=== PATIENT | female | born 1995 | race Two or more races ===

== ENCOUNTER 2021-08-10 08:08 | Emergency (ER) | payer MEDICAID ==
[~2021-08-10] VITALS: Ht 149.9 cm; Wt 90.7 kg
[2021-08-10 08:36] LABS: Urine Bacteria NONE SEEN /hpf (None Seen); Urine Blood Negative /uL (Negative); Urine Mucus FEW (None Seen); Urine Specific Gravity 1.026 (1.001-1.035); Urine WBC 2 /hpf (0 - 5)
[2021-08-10 09:11] LABS: Basophils # (auto) 0.1 10 ^3/uL (0-0.2); Basophils % (auto) 0.7 % (0.0-2.0); Eosinophils # (auto) 0.4 10 ^3/uL (0-0.8); Hematocrit 41.3 % (36.0-46.0); Hemoglobin 13.6 g/dL (12.2-16.2); Lymphocytes # (auto) 2.1 10 ^3/uL (0.4-5.4); Lymphocytes % (auto) 18.8 % (10.0-50.0); Mean Corpuscular Hgb Conc. 32.9 g/dL (32.0-36.0); Mean Corpuscular Volume 91.3 fL (80.0-100.0); Monocytes # (auto) 0.7 10 ^3/uL (0-1.3); Monocytes % (auto) 6.1 % (0.0-12.0); Neutrophils # (auto) 7.9 10 ^3/uL (1.6-8.6); Neutrophils % (auto) 70.4 % (37.0-80.0); Red Blood Cells 4.53 10^6/uL (4.0-5.20); White Blood Cell 11.2 10^3/uL (4.4-10.8)
[2021-08-10 09:31] VITALS: BP 138/109
== END 2021-08-10 10:52 | disposition home or self-care (01) ==
LOC: ER 08:08
DX: O26.891 Other specified pregnancy related conditions, first trimester (principal); R10.2 Pelvic and perineal pain; Z3A.10 10 weeks gestation of pregnancy
CPT/HCPCS: 36415; 76801; 81001; 81025; 84702; 85025

== ENCOUNTER 2021-08-14 21:45 | Emergency (ER) | payer MEDICAID ==
[~2021-08-14] VITALS: Ht 149.9 cm; Wt 90.7 kg
[2021-08-14 21:45] VITALS: BP 130/55
== END 2021-08-15 00:13 | disposition left against medical advice (07) ==
LOC: ER 21:49
DX: J45.909 Unspecified asthma, uncomplicated (principal); Z53.21 Procedure and treatment not carried out due to patient leaving prior to being seen by health care provider

== ENCOUNTER 2021-08-16 16:12 | Emergency (ER) | payer MEDICAID ==
[~2021-08-16] VITALS: Ht 149.9 cm; Wt 90.7 kg
[2021-08-16] MEDS ORDERED: ALBUTEROL SULF 2.5 MG/0.5ML(0.5%) NEB SOLN NEB ONE ×2 (17:00→18:00)
[2021-08-16] MEDS ORDERED: IPRATROPIUM BROM 0.5 MG/2.5ML INH SOL NEB ONE ×2 (17:00→18:00)
[2021-08-16] MEDS ORDERED: methylPREDNISolone SOD SUCC 125 MG/2 ML VL IM ONE (17:00)
[2021-08-16] MEDS ORDERED: ALBUTEROL SULF 2.5 MG/0.5ML(0.5%) NEB SOLN ONE (17:57)
[2021-08-16] MEDS ORDERED: IPRATROPIUM BROM 0.5 MG/2.5ML INH SOL ONE (17:57)
[2021-08-16 18:29] VITALS: BP 136/91
== END 2021-08-16 18:36 | disposition home or self-care (01) ==
LOC: ER 16:12
DX: J45.901 Unspecified asthma with (acute) exacerbation (principal)
CPT/HCPCS: 94640; 96372; 99284; J2930; J7644

== ENCOUNTER 2021-09-25 11:57 | Emergency (ER) | payer MEDICAID ==
[~2021-09-25] VITALS: Ht 149.9 cm; Wt 88.5 kg
[2021-09-25] MEDS ORDERED: ALBUTEROL SULF 2.5 MG/0.5ML(0.5%) NEB SOLN NEB ONE (13:00)
[2021-09-25] MEDS ORDERED: IPRATROPIUM BROM 0.5 MG/2.5ML INH SOL NEB ONE (13:00)
[2021-09-25 13:13] VITALS: BP 118/72
== END 2021-09-25 14:18 | disposition home or self-care (01) ==
LOC: ER 11:57
DX: O26.892 Other specified pregnancy related conditions, second trimester (principal); J45.901 Unspecified asthma with (acute) exacerbation; Z3A.16 16 weeks gestation of pregnancy
CPT/HCPCS: 94640; 99283; J7644

== ENCOUNTER 2021-10-05 21:32 | Emergency (ER) | payer MEDICAID ==
[~2021-10-05] VITALS: Ht 149.9 cm; Wt 88.5 kg
[2021-10-05 22:18] LABS: Basophils # (auto) 0 10 ^3/uL (0-0.2); Basophils % (auto) 0.3 % (0.0-2.0); Eosinophils # (auto) 0.2 10 ^3/uL (0-0.8); Eosinophils % (auto) 1.2 % (0.0-7.0); Hematocrit 42.1 % (36.0-46.0); Hemoglobin 13.7 g/dL (12.2-16.2); Lymphocytes # (auto) 1.6 10 ^3/uL (0.4-5.4); Mean Corpuscular Hemoglobin 29.2 pg (28.0-32.0); Mean Corpuscular Hgb Conc. 32.5 g/dL (32.0-36.0); Mean Corpuscular Volume 89.8 fL (80.0-100.0); Monocytes # (auto) 0.9 10 ^3/uL (0-1.3); Neutrophils # (auto) 10.8 10 ^3/uL (1.6-8.6); Neutrophils % (auto) 79.5 % (37.0-80.0); Nucleated Red Blood Cells % 0.1 %; Red Blood Cells 4.69 10^6/uL (4.0-5.20); Red Cell Distribution Width 14.2 % (11.8-14.3); White Blood Cell 13.6 10^3/uL (4.4-10.8)
[2021-10-05 22:22] LABS: Urine WBC None Seen /hpf (0 - 5)
[2021-10-05 22:36] LABS: Calcium 8.4 mg/dL (8.5-10.1); Potassium 3.9 mmol/L (3.5-5.1)
[2021-10-05 22:40] LABS: Albumin 3.1 g/dL (3.4-5.0); BUN/Creatinine Ratio 15.4
[2021-10-05 22:42] LABS: Bilirubin, Total 0.2 mg/dL (0.2-1.0); Total Protein 6.6 g/dL (6.4-8.2)
[2021-10-05 22:48] LABS: Urine Bacteria FEW /hpf (None Seen); Urine Blood Negative /uL (Negative)
[2021-10-06] MEDS ORDERED: CEPH500C PO ×2 (04:10→04:15)
[2021-10-06] MEDS ORDERED: SPACMIS8 (04:15)
[2021-10-06 04:25] VITALS: BP 100/62
== END 2021-10-06 04:28 | disposition home or self-care (01) ==
LOC: ER 21:32
DX: O23.42 Unspecified infection of urinary tract in pregnancy, second trimester (principal); N39.0 Urinary tract infection, site not specified; Z79.899 Other long term (current) drug therapy; Z88.1 Allergy status to other antibiotic agents; Z3A.18 18 weeks gestation of pregnancy
CPT/HCPCS: 36415; 76805; 80053; 81001; 83690; 84702; 85025; 87086

== ENCOUNTER 2021-10-06 20:06 | Emergency (ER) | payer MEDICAID ==
[~2021-10-06] VITALS: Ht 149.9 cm; Wt 89.4 kg
[~2021-10-06 20:06] MED LIST: CEPH500C PO; SPACMIS8
[2021-10-06 21:38] LABS: Albumin 3.3 g/dL (3.4-5.0); Basophils # (auto) 0.1 10 ^3/uL (0-0.2); Basophils % (auto) 0.4 % (0.0-2.0); Calcium 9.3 mg/dL (8.5-10.1); Eosinophils # (auto) 0.3 10 ^3/uL (0-0.8); Hematocrit 43.3 % (36.0-46.0); Hemoglobin 14.3 g/dL (12.2-16.2); Lymphocytes # (auto) 1.5 10 ^3/uL (0.4-5.4); Lymphocytes % (auto) 10.6 % (10.0-50.0); Mean Corpuscular Hemoglobin 29.4 pg (28.0-32.0); Mean Corpuscular Hgb Conc. 33.1 g/dL (32.0-36.0); Mean Corpuscular Volume 88.9 fL (80.0-100.0); Monocytes # (auto) 0.9 10 ^3/uL (0-1.3); Monocytes % (auto) 6.9 % (0.0-12.0); Neutrophils % (auto) 80.1 % (37.0-80.0); Potassium 4.1 mmol/L (3.5-5.1); Red Blood Cells 4.87 10^6/uL (4.0-5.20); Red Cell Distribution Width 14.1 % (11.8-14.3); White Blood Cell 13.8 10^3/uL (4.4-10.8)
[2021-10-06 21:42] LABS: Bilirubin, Total 0.3 mg/dL (0.2-1.0); Total Protein 7.3 g/dL (6.4-8.2)
[2021-10-07 00:08] VITALS: BP 119/79
== END 2021-10-07 00:45 | disposition home or self-care (01) ==
LOC: ER 20:06
DX: R10.13 Epigastric pain (principal); J45.909 Unspecified asthma, uncomplicated; Z20.822 Contact with and (suspected) exposure to COVID-19
CPT/HCPCS: 36415; 80053; 85025; 85379; 87426

== ENCOUNTER 2021-10-26 23:48 | Emergency (ER) | payer MEDICAID ==
[~2021-10-26] VITALS: Ht 149.9 cm; Wt 90.7 kg
[~2021-10-26 23:48] MED LIST changes: -CEPH500C PO
[2021-10-27] MEDS ORDERED: ALBUTEROL SULF 2.5 MG/0.5ML(0.5%) NEB SOLN NEB ONE ×2 (00:45→03:45)
[2021-10-27] MEDS ORDERED: IPRATROPIUM BROM 0.5 MG/2.5ML INH SOL NEB ONE ×2 (00:45→03:45)
[2021-10-27 05:20] VITALS: BP 128/98
[2021-10-27] MEDS ORDERED: predniSONE 20 MG TAB PO ONE (05:30)
== END 2021-10-27 05:25 | disposition home or self-care (01) ==
LOC: ER 23:48
DX: J45.901 Unspecified asthma with (acute) exacerbation (principal)
CPT/HCPCS: 94640; 99284; J7512; J7644

== ENCOUNTER 2021-11-24 13:50 | Observation (INO) | payer MEDICAID ==
[2021-11-24] MEDS ORDERED: ALBU108A5 IN (14:19)
[2021-11-24] MEDS ORDERED: PREN-96 PO (14:20)
== END 2021-11-24 16:00 | disposition home or self-care (01) ==
LOC: LDRP 13:50
PROVIDERS: ADMIT Specialist; ATTEND Obstetrics & Gynecology
DX: O99.512 Diseases of the respiratory system complicating pregnancy, second trimester (principal); J45.909 Unspecified asthma, uncomplicated; O26.892 Other specified pregnancy related conditions, second trimester; E86.0 Dehydration; Z3A.25 25 weeks gestation of pregnancy
CPT/HCPCS: 59025; 81002; 94760; G0378; G0379

== ENCOUNTER 2021-11-24 15:16 | Emergency (ER) | payer MEDICAID ==
[~2021-11-24] VITALS: Ht 149.9 cm; Wt 95.3 kg
[~2021-11-24 15:16] MED LIST changes: +ALBU108A5 IN; +PREN-96 PO
[2021-11-24] MEDS ORDERED: DexAMETHasone 0.5MG/5ML ORAL ELIX PO ONE (16:00)
[2021-11-24] MEDS ORDERED: IPRATROPIUM BROM 0.5 MG/2.5ML INH SOL NEB ONE ×2 (16:00→17:30)
[2021-11-24] MEDS ORDERED: ALBUTEROL SULF 2.5 MG/0.5ML(0.5%) NEB SOLN NEB ONE (17:30)
[2021-11-24 19:35] VITALS: BP 127/82
== END 2021-11-24 19:51 | disposition home or self-care (01) ==
LOC: ER 15:37
DX: O99.512 Diseases of the respiratory system complicating pregnancy, second trimester (principal); J45.901 Unspecified asthma with (acute) exacerbation; Z79.899 Other long term (current) drug therapy; Z88.1 Allergy status to other antibiotic agents; Z3A.24 24 weeks gestation of pregnancy
CPT/HCPCS: 94640; 99283; J7644; J8540

== ENCOUNTER 2021-12-20 06:24 | Emergency (ER) | payer MEDICAID ==
[~2021-12-20] VITALS: Ht 149.9 cm; Wt 99.8 kg
[2021-12-20] MEDS ORDERED: IPRATROPIUM BROM 0.5 MG/2.5ML INH SOL NEB ONE (07:45)
[2021-12-20] MEDS ORDERED: ALBUTEROL SULF 2.5 MG/0.5ML(0.5%) NEB SOLN NEB ONE (07:45)
[2021-12-20] MEDS ORDERED: methylPREDNISolone SOD SUCC 125 MG/2 ML VL IM ONE (07:45)
[2021-12-20 07:48] VITALS: BP 117/73
[2021-12-20] MEDS ORDERED: IPRATROPIUM BROM 0.5 MG/2.5ML INH SOL ONE (07:49)
[2021-12-20] MEDS ORDERED: ALBUTEROL SULF 2.5 MG/0.5ML(0.5%) NEB SOLN ONE (07:49)
[2021-12-20] MEDS ORDERED: methylPREDNISolone SOD SUCC 125 MG/2 ML VL ONE (08:03)
[2021-12-20] MEDS ORDERED: PRED20TA2 PO (08:55)
== END 2021-12-20 09:04 | disposition home or self-care (01) ==
LOC: ER 06:24
DX: O99.513 Diseases of the respiratory system complicating pregnancy, third trimester (principal); J45.901 Unspecified asthma with (acute) exacerbation; Z3A.29 29 weeks gestation of pregnancy
CPT/HCPCS: 94640; 96372; 99283; J2930; J7644

== ENCOUNTER 2022-02-01 13:15 | Observation (INO) | payer MEDICAID ==
[~2022-02-01 13:15] MED LIST changes: +PRED20TA2 PO
== END 2022-02-01 14:38 | disposition home or self-care (01) ==
LOC: LDRP 13:15
PROVIDERS: ADMIT Obstetrics & Gynecology; ATTEND Obstetrics & Gynecology
DX: O62.9 Abnormality of forces of labor, unspecified (principal); O26.893 Other specified pregnancy related conditions, third trimester; R10.2 Pelvic and perineal pain; R11.0 Nausea; Z3A.35 35 weeks gestation of pregnancy; Z79.899 Other long term (current) drug therapy
CPT/HCPCS: 59025; 81002; 82948; 82962; 94760; G0378

== ENCOUNTER 2025-01-12 07:18 | Emergency (ER) | payer MEDICAID ==
[~2025-01-12] VITALS: Ht 149.9 cm; Wt 84.3 kg
[~2025-01-12 07:18] MED LIST changes: +OSEL75CA5 PO; +SPAC1MIS48; -SPACMIS8; +ZOFR4T PO
[2025-01-12 08:18] VITALS: BP 117/73; PULSE 99; RESP 22; TEMP 98.2; O2SAT 100
[2025-01-12] MEDS ORDERED: IBUP-1454 PO (09:18)
--- NOTE | 2025-01-12 09:19 | ED.PDOC ---
Altered Mental Status HPI Comments This is a pleasant 29-year-old female with a MHx that presents for a minor head injury that occurred three days ago while doing yd work Patient reports hitting the frontal lobe on her brick wall while doing yd work. Sustained immediate throbbing pulsing sensation that is currently rated as moderate. Has not taken medications for the symptoms listed above. Pain worsens when leaning forward. Concerned about serious pathology. Denies any nausea vomiting diarrhea. Denies any LOC. Not taken any blood thinners. Denies any changes to his strength speech Chief Complaint: Head Injury Time Seen by MD: 08:08 Primary Care Provider: venegas Reviewed Notes: Nurses Notes, Medications, Allergies Allergies: Coded Allergies: Amoxicillin (Verified Allergy, Unknown, 11/24/21) Uncoded Allergies: ANY CILLINS (Allergy, Unknown, 10/05/21) Home Meds Active Scripts Ondansetron Odt 4MG Tab (ZOFRAN PO) 4 Mg Tb, 4 MG PO Q8HP PRN for 5 Days, #15 TAB ODT TAB-DISSOLVE IN MOUTH, THEN SWALLOW Prov:JESUS PINEDA MD 06/22/24 Prednisone (Prednisone) 20 Mg Tab, 60 MG PO DAILY, #15 MG Prov:PARESH BAKER 10/13/22 Albuterol Sulfate (Albuterol Sulfate Hfa) 108 Mcg/Act Aer, 108 MCG IN QID, #90 AER Prov:PARESH BAKER 10/13/22 Oseltamivir Phosphate (Tamiflu) 75 Mg Cap, 1 CAP PO BID, #10 CAP Prov:PARESH BAKER 10/13/22 Prednisone (Prednisone) 20 Mg Tab, 60 MG PO DAILY for 6 Days, #15 MG Prov:PARESH BAKER 12/20/21 Spacer/Aerosol-Holding Chamber (Aerochamber Plus/Large Ma) Lrg Mask Mis, MASK ONCE, #1 Prov:KEISHA SANTOYO MD 10/06/21 Reported Medications Vit W/ Ferrous Fumara ( One Daily) Daily Tab, 1 TAB PO DAILY, #90 TAB 3 Refills 11/24/21 Albuterol Sulfate (Albuterol Sulfate Hfa) 108 Mcg/Act Aer, 108 MCG IN, AER 11/24/21 Mode of Arrival: Ambulatory Past Medical History PAST MEDICAL HISTORY: Anxiety, Asthma Surgical History: Denies all surgeries [employer] 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 No abrasions lacerations hematomas open wounds or tenderness to palpation), Normal ENT Inspection, Pharynx Normal, TMs Normal Neck: Full Range of Motion, Non-Tender, Normal, Normal Inspection Respiratory: Chest Non-Tender, Lungs Clear, No Accessory Muscle Use, No Respiratory Distress, Normal Breath Sounds Cardiovascular: No Edema, No JVD, No Murmur, No Gallop, Normal Peripheral Pulses, Regular Rate/Rhythm Breast Exam: Deferred Gastrointestinal: No Organomegaly, Non Tender, No Pulsatile Mass, Normal Bowel Sounds, Soft Genitalia: Deferred Pelvic: Deferred Rectal: Deferred Extremities: No calf tenderness, Normal capillary refill, Normal inspection, Normal range of motion, Non-tender, No pedal edema Musculoskeletal : Apperance: Normal Neurologic: Alert, weed eradicator II-XII nml as Tested, No Motor Deficits, Normal Affect, Normal Mood, No Sensory Deficits Cerebellar Function: Normal Reflexes: Normal Skin: Dry, Normal Color, Warm Lymphatic: No Adenopathy Was a procedure done? Was a procedure done?: No Differential Diagnosis (ALOC) Differential Diagnosis: Other X-Ray, Labs, Meds, VS Vital Signs Date Time Temp Pulse Resp B/P (MAP) Pulse Ox O2 Delivery O2 Flow Rate FiO2 01/12/25 08:18 99 22 100 Room Air 01/12/25 08:18 98.2 99 22 117/73 (88) 100 98.2 01/12/25 07:42 98.2 99 22 117/73 (88) 100 X-Ray, Labs, Meds, VS Comment The patient suffered a minor closed head injury. The following differential diagnoses were considered for this patient; subdural hematoma, subarachnoid hemorrhage, epidural hematoma, intraparenchymal bleed, herniation, skull fracture. The patient is neurologically intact by exam and is able to ambulate without difficulty. No indication for CT at this time. No red flags. The patient is not currently utilizing any anticoagulants. The patient is advised to use tylenol as needed for pain. The patient is instructed to follow up their primary care physician as needed or return to ER if vomiting or worsening headache occurs. The patient was counseled in regards to the diagnosis and management of the condition and verbalized understanding of this. Time of 1ST Reevaluation: 09:17 Reevaluation 1ST: Improved Patient Education/Counseling: Diagnosis, Treatment Family Education/Counseling: Diagnosis, Treatment Departure 1 Departure Time of Disposition: 09:16 Impression: Primary Impression: Minor head injury Qualified Codes: S09.90XA - Unspecified injury of head, initial encounter Disposition: HOME / SELF CARE / HOMELESS Condition: Stable e-Prescriptions Ibuprofen (Ibuprofen) 600 Mg Tab 1 TAB PO TID for 7 Days, #21 TAB 0 Refills Prov: JOE SAN NP 01/12/25 Critical Care Note Critical Care Time?: No Stability Stability form required: No Heart Score Heart Score: Heart Score Response (Comments) Value History N/A 0 EKG N/A 0 Age N/A 0 Risk Factors N/A 0 Troponin N/A 0 Total 0 JOE SAN NP Jan 12, 2025 09:19
[2025-01-12] MEDS: KETOROLAC TROMETH 30 MG/ML 1ML VIAL IM ONE (09:20)
== END 2025-01-12 09:25 | disposition home or self-care (01) ==
LOC: ER 07:18
DX: S09.90XA Unspecified injury of head, initial encounter (principal); J45.909 Unspecified asthma, uncomplicated; F41.9 Anxiety disorder, unspecified; F12.90 Cannabis use, unspecified, uncomplicated; Z88.0 Allergy status to penicillin; Z79.52 Long term (current) use of systemic steroids; W22.01XA Walked into wall, initial encounter; Y93.89 Activity, other specified; Y92.096 Garden or yard of other non-institutional residence as the place of occurrence of the external cause; Y99.8 Other external cause status
CPT/HCPCS: 96372; 99283; J1885

== ENCOUNTER 2025-05-03 07:17 | Emergency (ER) | payer MEDICAID ==
[~2025-05-03] VITALS: Ht 149.9 cm; Wt 81.4 kg
[~2025-05-03 07:17] MED LIST changes: +IBUP-1454 PO
[2025-05-03 07:50] LABS: Urine Bacteria None Seen /hpf (None Seen)
--- NOTE | 2025-05-03 07:57 | ED.PDOC ---
History of Present Illness HPI Comments 29-year-old female presents to the ER with a prior medical history of anxiety, asthma; surgical history of and the chief complaint of abdominal pain. Patient reports on having abdominal pain yesterday in the afternoon which was mild for which turned severe at 6:00 p.m. yesterday with N/V/D. Patient states on having sharp right-sided abdominal pain which started over 0400 this morning. Patient notes on her last menstruation period being last month but during April had light spotting. Social history of marijuana use. Denies chills, fever, SOB, CP. No other associated symptoms, modifiers, recent injuries or sick contacts present at this time. Chief Complaint: Abdominal Pain Time Seen by MD: 07:50 Primary Care Provider: ANTONIA Reviewed Notes: Nurses Notes, Medications, Allergies Allergies: Coded Allergies: Amoxicillin (Verified Allergy, Unknown, 11/24/21) Uncoded Allergies: ANY CILLINS (Allergy, Unknown, 10/05/21) Home Meds Active Scripts Ibuprofen (Ibuprofen) 600 Mg Tab, 1 TAB PO TID for 7 Days, #21 TAB 0 Refills Prov:JOE SAN NP 01/12/25 Ondansetron Odt 4MG Tab (ZOFRAN PO) 4 Mg Tb, 4 MG PO Q8HP PRN for 5 Days, #15 TAB ODT TAB-DISSOLVE IN MOUTH, THEN SWALLOW Prov:JESUS PINEDA MD 06/22/24 Prednisone (Prednisone) 20 Mg Tab, 60 MG PO DAILY, #15 MG Prov:PARESH BAKER 10/13/22 Albuterol Sulfate (Albuterol Sulfate Hfa) 108 Mcg/Act Aer, 108 MCG IN QID, #90 AER Prov:PARESH BAKER 10/13/22 Oseltamivir Phosphate (Tamiflu) 75 Mg Cap, 1 CAP PO BID, #10 CAP Prov:PARESH BAKER 10/13/22 Prednisone (Prednisone) 20 Mg Tab, 60 MG PO DAILY for 6 Days, #15 MG Prov:PARESH BAKER 12/20/21 Spacer/Aerosol-Holding Chamber (Aerochamber Plus/Large Ma) Lrg Mask Mis, MASK ONCE, #1 Prov:KEISHA SANTOYO MD 10/06/21 Reported Medications Vit W/ Ferrous Fumara ( One Daily) Daily Tab, 1 TAB PO DAILY, #90 TAB 3 Refills 11/24/21 Albuterol Sulfate (Albuterol Sulfate Hfa) 108 Mcg/Act Aer, 108 MCG IN, AER 11/24/21 Information Source: Patient Mode of Arrival: Ambulatory Severity: Moderate Timing: Hours Duration: Since onset, Hours Prehospital treatment: None Past Medical History PAST MEDICAL HISTORY: Anxiety, Asthma 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 Family History Family History: Reviewed,noncontributory to illness, Unknown Social History Smoker: Non-Smoker Alcohol: Denies ETOH Use Drugs: Marijuana Lives In: Home Constitutional: denies: chills, diaphoresis, fatigue, fever, malaise, sweats, weakness, others EENTM: denies: blurred vision, double vision, ear bleeding, ear discharge, ear drainage, ear pain, ear ringing, eye pain, eye redness, hearing loss, mouth pain, mouth swelling, nasal discharge, nose bleeding, nose congestion, nose pain, photophobia, tearing, throat pain, throat swelling, voice changes, others Respiratory: denies: cough, hemoptysis, orthopnea, SOB at rest, shortness of breath, SOB with excertion, stridor, wheezing, others Cardiovascular: denies: chest pain, dizzy spells, diaphoresis, Dyspnea on exertion, edema, irregular heart beat, left arm pain, lightheadedness, palpitations, PND, syncope, others Gastrointestinal: reports: abdominal pain, diarrhea, nausea, vomiting; denies: abdomen distended, blood streaked bowels, constipated, dysphagia, difficulty swallowing, hematemesis, melena, poor appetite, poor fluid intake, rectal bleeding, rectal pain, others Genitourinary: denies: abnormal vagina bleeding, burning, dyspareunia, dysuria, flank pain, frequency, hematuria, incontinence, pain, , vagina discharge, urgency, others Neurological: denies: dizziness, fainting, headache, left sided numbness, left sided weakness, numbness, paresthesia, pre-existing deficit, right sided numbness, right sided weakness, seizure, speech problems, tingling, tremors, weakness, others Musculoskeletal: denies: back pain, gout, joint pain, joint swelling, muscle pain, muscle stiffness, neck pain, others Integumetry: denies: bruises, change in color, change in hair/nails, dryness, laceration, lesions, lumps, rash, wounds, others Allergic/Immunocompromised: denies: Difficulty Healing, Frequent Infections, Hives, Itching, others Hematologic/Lymphatic: denies: anemia, blood clots, easy bleeding, easy bruising, swollen glands, others Endocrine: denies: excessive hunger, excessive sweating, excessive thirst, excessive urination, flushing, intolerance to cold, intolerance to heat, unexp lained weight gain, unexplained weight loss, others Psychiatric: denies: anxiety, bipolar disorder, depression, hopeless, panic disorder, schizophrenia, sleepless, suicidal, others All Other Systems: Reviewed and Negative Physical Exam General Appearance: Moderate Distress, Normal HEENT: Normal ENT Inspection, Pharynx Normal, TMs Normal Neck: Full Range of Motion, Non-Tender, Normal, Normal Inspection Respiratory: Chest Non-Tender, Lungs Clear, No Accessory Muscle Use, No Respiratory Distress, Normal Breath Sounds Cardiovascular: No Edema, No JVD, No Murmur, No Gallop, Normal Peripheral Pulses, Regular Rate/Rhythm Breast Exam: Deferred Gastrointestinal: No Organomegaly, Non Tender, No Pulsatile Mass, Normal Bowel Sounds, Soft Genitalia: Deferred Pelvic: Deferred Rectal: Deferred Extremities: No calf tenderness, Normal capillary refill, Normal inspection, Normal range of motion, Non-tender, No pedal edema Musculoskeletal : Apperance: Normal Neurologic: Alert, time signal wirer II-XII nml as Tested, No Motor Deficits, Normal Affect, Normal Mood, No Sensory Deficits Cerebellar Function: Normal Reflexes: Normal Skin: Dry, Normal Color, Warm Peripheral Pulses: 3+ Radial (R), 3+ Radial (L) Lymphatic: No Adenopathy Was a procedure done? Was a procedure done?: No Differential Dx Considerations may include: Colitis Electrolyte imbalance X-Ray, Labs, Meds, VS Vital Signs Date Time Temp Pulse Resp B/P (MAP) Pulse Ox O2 Delivery O2 Flow Rate FiO2 05/03/25 08:01 98.7 109 16 127/85 (99) 96 98.7 05/03/25 08:01 109 17 96 Room Air 05/03/25 07:24 98.2 92 16 100/64 (76) 96 98.2 Lab Test 05/03/25 07:54 05/03/25 07:20 Range/Units White Blood Count 8.5 4.4-10.8 10^3/uL Red Blood Count 5.18 4.0-5.20 10^6/uL Hemoglobin 15.7 12.2-16.2 g/dL Hematocrit 46.4 H 36.0-46.0 % Mean Corpuscular Volume 89.5 80.0-100.0 fL Mean Corpuscular Hemoglobin 30.3 28.0-32.0 pg Mean Corpuscular Hemoglobin Concent 33.8 32.0-36.0 g/dL Red Cell Distribution Width 13.8 11.8-14.3 % Platelet Count 287 140-450 10^3/uL Mean Platelet Volume 9.4 6.9-10.8 fL Neutrophils (%) (Auto) 65.8 37.0-80.0 % Lymphocytes (%) (Auto) 18.7 10.0-50.0 % Monocytes (%) (Auto) 7.6 0.0-12.0 % Eosinophils (%) (Auto) 7.3 H 0.0-7.0 % Basophils (%) (Auto) 0.6 0.0-2.0 % Neutrophils # (Auto) 5.6 1.6-8.6 10 ^3/uL Lymphocytes # (Auto) 1.6 0.4-5.4 10 ^3/uL Monocytes # (Auto) 0.6 0-1.3 10 ^3/uL Eosinophils # (Auto) 0.6 0-0.8 10 ^3/uL Basophils # (Auto) 0 0-0.2 10 ^3/uL Nucleated Red Blood Cells 0.0 % Sodium Level 142 136-145 mmol/L Potassium Level 3.7 3.5-5.1 mmol/L Chloride Level 110 H 98-107 mmol/L Carbon Dioxide Level 22 20-31 mmol/L Anion Gap 10 5-15 Blood Urea Nitrogen 9 9-23 mg/dL Creatinine 0.90 0.550-1.02 mg/dL Glomerular Filtration Rate Calc 88 >90 mL/min BUN/Creatinine Ratio 10.0 10.0-20.0 Serum Glucose 107 H 74-106 mg/dL Calcium Level 10.6 H 8.7-10.4 mg/dL Urine Color Yellow Yellow Urine Clarity Ex.turbid Clear Urine pH 5.5 5.0-9.0 Urine Specific Borden 1.033 1.001-1.035 Urine Protein 1+ H Negative Urine Ketones 1+ H Negative Urine Blood Negative Negative /uL Urine Nitrite Negative Negative Urine Bilirubin Negative Negative Urine Urobilinogen Normal Negative mg/dL Urine Leukocyte Esterase Negative Negative /uL Urine RBC None seen 0 - 4 /hpf Urine Microscopic WBC 0-5 /HPF Urine Squamous Epithelial Cells None seen <5 /hpf Urine Amorphous Crystals Few None Seen /hpf Urine Bacteria None seen None Seen /hpf Urine Mucus Moderate None Seen Urine Glucose Normal Normal mg/dL Patient alert. Complaining of abdominal discomfort. Vitals stable. Answering questions. WBC within normal limits. Hemoglobin within normal limits. Abdomen is soft nontender. She is comfortable. Hospital dehydration. Was told to drink plenty of fluids. Was given prescription of Zofran. Explained to the patient. Was told to follow up with her primary care physician. Was told to come back if there is any problem. Time of 1ST Reevaluation: 08:20 Reevaluation 1ST: Unchanged Patient Education/Counseling: Diagnosis, Treatment, Prognosis Family Education/Counseling: No Family Present SEPSIS Sepsis Screen Date sepsis recognized/suspect: May 03, 2025 Time Sepsis recognized/suspect: 719 Recent Procedure: No On Antibiotic Therapy: No Respiratory Rate >20: No Heart Rate >90: Yes Temp<36 C (96.8 F) or >38.3 C: No SBP <90 or MAP <65 mmHG: No New Acute Mental Status Change: No Is the patient on CPAP, BIPAP,: No Vital Signs Date Time Temp Pulse Resp B/P (MAP) Pulse Ox O2 Delivery O2 Flow Rate FiO2 05/03/25 08:01 98.7 109 16 127/85 (99) 96 98.7 05/03/25 08:01 109 17 96 Room Air 05/03/25 07:24 98.2 92 16 100/64 (76) 96 98.2 Laboratory Tests Test 05/03/25 07:54 White Blood Count 8.5 10^3/uL (4.4-10.8) Departure 1 Departure Time of Disposition: 08:11 Impression: Primary Impression: Gastritis Qualified Codes: K29.00 - Acute gastritis without bleeding Additional Impression: Gastroenteritis Disposition: 01 HOME / SELF CARE / HOMELESS Condition: Good e-Prescriptions Ondansetron Odt 4MG Tab (ZOFRAN PO) 4 Mg Tb 4 MG PO DAILY for 5 Days, #5 TAB ODT TAB-DISSOLVE IN MOUTH, THEN SWALLOW Prov: AMADO PEARCE MD 05/03/25 Discharged With: Self Critical Care Note Critical Care Time?: No Stability Stability form required: No Heart Score Heart Score: Heart Score Response (Comments) Value History N/A 0 EKG N/A 0 Age N/A 0 Risk Factors N/A 0 Troponin N/A 0 Total 0 I personally scribed for AMADO PEARCE MD ([email or web address]) on 05/03/25 at 07:57. Electronically submitted by David Duarte ([email or web address]). AMADO PEARCE MD May 03, 2025 07:57
[2025-05-03 08:05] LABS: Basophils # (auto) 0 10 ^3/uL (0-0.2); Basophils % (auto) 0.6 % (0.0-2.0); Eosinophils # (auto) 0.6 10 ^3/uL (0-0.8); Eosinophils % (auto) 7.3 % (0.0-7.0); Hematocrit 46.4 % (36.0-46.0); Hemoglobin 15.7 g/dL (12.2-16.2); Lymphocytes # (auto) 1.6 10 ^3/uL (0.4-5.4); Lymphocytes % (auto) 18.7 % (10.0-50.0); Mean Corpuscular Hemoglobin 30.3 pg (28.0-32.0); Mean Corpuscular Hgb Conc. 33.8 g/dL (32.0-36.0); Mean Corpuscular Volume 89.5 fL (80.0-100.0); Monocytes # (auto) 0.6 10 ^3/uL (0-1.3); Monocytes % (auto) 7.6 % (0.0-12.0); Neutrophils # (auto) 5.6 10 ^3/uL (1.6-8.6); Neutrophils % (auto) 65.8 % (37.0-80.0); Platelet Count (auto) 287 10^3/uL (140-450); Red Blood Cells 5.18 10^6/uL (4.0-5.20); Red Cell Distribution Width 13.8 % (11.8-14.3); White Blood Cell 8.5 10^3/uL (4.4-10.8)
[2025-05-03 08:10] LABS: Urine Amorphous Crystal FEW /hpf (None Seen); Urine Blood Negative /uL (Negative); Urine Clarity Ex.Turbid (Clear); Urine Mucus MODERATE (None Seen); Urine Protein, UAD 1+ (Negative); Urine Specific Gravity 1.033 (1.001-1.035); Urine Squamous Epithelial Cell None Seen /hpf (<5); Urine Urobilinogen Normal (Negative); Urine pH 5.5 (5.0-9.0)
[2025-05-03 08:13] LABS: Urine Color Yellow (Yellow)
[2025-05-03 08:13] LABS: Potassium 3.7 mmol/L (3.5-5.1); Sodium 142 mmol/L (136-145)
[2025-05-03 08:14] LABS: Anion Gap 10 (5-15); Carbon Dioxide 22 mmol/L (20-31)
[2025-05-03 08:18] LABS: Calcium 10.6 mg/dL (8.7-10.4); Chloride 110 mmol/L (98-107)
[2025-05-03 08:19] LABS: Blood Urea Nitrogen 9 mg/dL (9-23)
[2025-05-03 08:20] LABS: Glucose 107 mg/dL (74-106)
[2025-05-03] MEDS ORDERED: ZOFR4T PO (08:51)
[2025-05-03 09:08] VITALS: BP 122/81; PULSE 90; RESP 16; TEMP 98.2; O2SAT 97
== END 2025-05-03 09:08 | disposition home or self-care (01) ==
LOC: ER 07:17
DX: K29.70 Gastritis, unspecified, without bleeding (principal); K52.9 Noninfective gastroenteritis and colitis, unspecified; J45.909 Unspecified asthma, uncomplicated; Z88.0 Allergy status to penicillin
CPT/HCPCS: 36415; 80048; 81001; 85025

== ENCOUNTER 2025-06-07 19:19 | Emergency (ER) | payer MEDICAID ==
[~2025-06-07] VITALS: Ht 149.9 cm; Wt 81.8 kg
[2025-06-07 20:30] LABS: Urine Protein, UAD TRACE (Negative)
--- NOTE | 2025-06-07 21:10 | ED.PDOC ---
History of Present Illness HPI Comments 28-year-old female who presents with chief complaint of abnormal vaginal bleeding lower abdominal and back pain. Patient reports atraumatic and unprovoked onset of bleeding on June 04, 2025. She states ongoing to 2-3 regular size pads every day. Pain is described a pulsating sensation as worse in her lower left quadrant area. Recently, she suspects of being via multiple at home tests she took on June 03, 2025 showing mixed results, to make this her 3rd ([id number], miscarriage; LMP May 12, 2025). 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 Patient denies having any lightheadedness, nausea, vomiting, urinary symptoms, weakness, or further associated symptoms. REVIEW OF SYSTEMS: No fever, no chills, HEENT: No neck pain, no blurred vision Cardiac: No chest pain. No palpitations. Lungs: No shortness of breath, GI: Abdominal pain, no vomiting : Abnormal vaginal bleeding Musculoskeletal: No joint pain , no back pain Skin: No rash, no wound Neuro: No headache, no dizziness, no syncope PHYSICAL EXAM: General: Awake, alert and oriented. No acute distress. Skin: Skin in warm, dry and intact without rashes or lesions. HEENT: The head is normocephalic and atraumatic. Conjunctivae are clear without exudates or hemorrhage. Sclera is non-icteric. Neck: Normal range of motion. No JVD. Cardiac: Regular rate Respiratory: No signs of respiratory distress. No Stridor. Extremities: Upper and lower extremities are atraumatic in appearance without deformity. Neurological: The patient is awake, alert and oriented to person, place, and time with normal speech. Speech is clear. There is no facial asymmetry. Psychiatric: Appropriate mood and affect. Good judgement and insight. Chief Complaint: Vaginal Bleed Time Seen by MD: 20:50 Primary Care Provider: KNIGHT Reviewed Notes: Nurses Notes, Medications, Allergies Allergies: Coded Allergies: Amoxicillin (Verified Allergy, Unknown, 11/24/21) Uncoded Allergies: ANY CILLINS (Allergy, Unknown, 10/05/21) Home Meds Active Scripts Ondansetron Odt 4MG Tab (ZOFRAN PO) 4 Mg Tb, 4 MG PO DAILY for 5 Days, #5 TAB ODT TAB-DISSOLVE IN MOUTH, THEN SWALLOW Prov:AMADO PEARCE MD 05/03/25 Ibuprofen (Ibuprofen) 600 Mg Tab, 1 TAB PO TID for 7 Days, #21 TAB 0 Refills Prov:JOE SAN NP 01/12/25 Ondansetron Odt 4MG Tab (ZOFRAN PO) 4 Mg Tb, 4 MG PO Q8HP PRN for 5 Days, #15 TAB ODT TAB-DISSOLVE IN MOUTH, THEN SWALLOW Prov:JESUS PINEDA MD 06/22/24 Prednisone (Prednisone) 20 Mg Tab, 60 MG PO DAILY, #15 MG Prov:PARESH BAKER 10/13/22 Albuterol Sulfate (Albuterol Sulfate Hfa) 108 Mcg/Act Aer, 108 MCG IN QID, #90 AER Prov:PARESH BAKER 10/13/22 Oseltamivir Phosphate (Tamiflu) 75 Mg Cap, 1 CAP PO BID, #10 CAP Prov:PARESH BAKER 10/13/22 Prednisone (Prednisone) 20 Mg Tab, 60 MG PO DAILY for 6 Days, #15 MG Prov:PARESH BAKER 12/20/21 Spacer/Aerosol-Holding Chamber (Aerochamber Plus/Large Ma) Lrg Mask Mis, MASK ONCE, #1 Prov:KEISHA SANTOYO MD 10/06/21 Reported Medications Vit W/ Ferrous Fumara ( One Daily) Daily Tab, 1 TAB PO DAILY, #90 TAB 3 Refills 11/24/21 Albuterol Sulfate (Albuterol Sulfate Hfa) 108 Mcg/Act Aer, 108 MCG IN, AER 11/24/21 Information Source: Patient Mode of Arrival: Ambulatory Severity: Moderate Timing: Days Duration: Since onset Prehospital treatment: None Past Medical History PAST MEDICAL HISTORY: Anxiety, Asthma Surgical History: [employer] History: Other (Miscarriages induced due to having O negative blood) 3 Para 1 AB 1 LMP May 12, 2025 Family History Family History: Reviewed,noncontributory to illness, Unknown Social History Smoker: Non-Smoker Alcohol: Denies ETOH Use Drugs: Marijuana Lives In: Home Was a procedure done? Was a procedure done?: No Differential Dx Considerations may include: Differential diagnoses considered include but are not limited to abnormal uterine bleeding, normal administration, urinary tract infection, miscarriage, ruptured ectopic , ovarian torsion/cyst, tubo-ovarian abscess, PID, endometriosis, other X-Ray, Labs, Meds, VS Vital Signs Date Time Temp Pulse Resp B/P (MAP) Pulse Ox O2 Delivery O2 Flow Rate FiO2 06/08/25 00:03 Room Air* 0 21 06/08/25 00:02 98.0 77 14 106/77 (87) 99 98.0 06/07/25 19:25 98.3 93 18 104/68 97 98.3 Lab Test 06/07/25 20:11 Range/Units Urine Color Yellow Yellow Urine Clarity Clear Clear Urine pH 5.5 5.0-9.0 Urine Specific [place] 1.032 1.001-1.035 Urine Protein Trace H Negative Urine Ketones Negative Negative Urine Blood 2+ H Negative /uL Urine Nitrite Negative Negative Urine Bilirubin Negative Negative Urine Urobilinogen Normal Negative mg/dL Urine Leukocyte Esterase Negative Negative /uL Urine RBC 2 0 - 4 /hpf Urine Microscopic WBC 1 0-5 /HPF Urine Squamous Epithelial Cells Few <5 /hpf Urine Bacteria Few H None Seen /hpf Urine Mucus Few None Seen Urine Glucose Normal Normal mg/dL Urine Test Negative Negative Time of 1ST Reevaluation: 21:20 Reevaluation 1ST: Unchanged Patient Education/Counseling: Need For Follow Up Family Education/Counseling: No Family Present SEPSIS Sepsis Screen Date sepsis recognized/suspect: Jun 07, 2025 Time Sepsis recognized/suspect: 1928 Recent Procedure: No On Antibiotic Therapy: No Respiratory Rate >20: No Heart Rate >90: Yes Temp<36 C (96.8 F) or >38.3 C: No SBP <90 or MAP <65 mmHG: No New Acute Mental Status Change: No Is the patient on CPAP, BIPAP,: No Vital Signs Date Time Temp Pulse Resp B/P (MAP) Pulse Ox O2 Delivery O2 Flow Rate FiO2 06/08/25 00:03 Room Air* 0 21 06/08/25 00:02 98.0 77 14 106/77 (87) 99 98.0 06/07/25 19:25 98.3 93 18 104/68 97 98.3 Departure 1 Departure Time of Disposition: 21:58 Impression: Primary Impression: Vaginal bleeding Disposition: 01 HOME / SELF CARE / HOMELESS Condition: Stable Additional Instructions: ED DISCHARGE INSTRUCTIONS Instructions: Please read all instructions provided in this packet carefully. Although you have been discharged from the Emergency Department, this does not mean that you have a "clean bill of health".No definitive diagnosis for your symptoms has been made today. It is possible that you are in the process of developing a serious illness. This is why you must return to the ED without fail if any new or worsening symptoms (especially if your symptoms include chest pain, trouble breathing, abdominal pain, fever, headache, confusion, trouble seeing, or trouble walking) It is also very important that you see a primary care provider (PCP) within the next 3-5 days to follow up. If you are unable to get an appointment, return to the ED for re-evaluation. Abdominal Pain: Care Instructions Overview Abdominal pain has many possible causes. Some aren't serious and get better on their own in a few days. Others need more testing and treatment. If your pain continues or gets worse, you need to be rechecked and may need more tests to find out what is wrong. You may need surgery to correct the problem. Don't ignore new symptoms, such as fever, nausea and vomiting, urination problems, pain that gets worse, and dizziness. These may be signs of a more serious problem. If you are not getting better, you may need more tests or treatment. The doctor has checked you carefully, but problems can develop later. If you notice any problems or new symptoms, get medical treatment right away. Follow-up care is a anderson part of your treatment and safety. Be sure to make and go to all appointments, and call your doctor if you are having problems. It's also a good idea to know your test results and keep a list of the medicines you take. How can you care for yourself at home? Rest until you feel better. To prevent dehydration, drink plenty of fluids. Choose water and other clear liquids until you feel better. If you have kidney, heart, or liver disease and have to limit fluids, talk with your doctor before you increase the amount of fluids you drink. When you feel like eating, start with small amounts. Do not have alcohol, caffeine, or spicy, hot, or high-fat foods for a day or two. Avoid anti-inflammatory medicines such as aspirin, ibuprofen (Advil, Motrin), and naproxen (Aleve). These can cause stomach upset. Talk to your doctor if you take daily aspirin for another health problem. When should you call for help? Call 911 anytime you think you may need emergency care. For example, call if: You passed out (lost consciousness). You pass maroon or very bloody stools. You vomit blood or what looks like coffee grounds. You have severe belly pain. Call your doctor now or seek immediate medical care if: Your pain gets worse, especially if it becomes focused in one area of your belly. You have a new or higher fever. Your stools are black and look like tar, or they have streaks of blood. You have unexpected vaginal bleeding. You have symptoms of a urinary tract infection. These may include: Pain when you urinate. Urinating more often than usual. Blood in your urine. You are dizzy or lightheaded, or you feel like you may faint. Watch closely for changes in your health, and be sure to contact your doctor if: You are not getting better as expected. Credits for Abdominal Pain: Care Instructions Current as of: August 22, 2023 Author: [employer] Staff Clinical Review Board All [employer] education is reviewed by a team that includes physicians, nurses, advanced practitioners, registered dieticians, and other healthcare professionals. Comments MDM: 29-year-old female with vaginal bleeding. Patient is well-appearing, nontoxic. Urine negative. Vital signs stable. Patient is felt stable for discharge home. Patient advised to follow up with primary care provider promptly and return to the emergency department with any new, worsening or concerning symptoms. Extensive evaluation was performed in attempt to identify or rule out: (See differential diagnosis section) The following tests were ordered, and results were reviewed by me and discussed with patient: (See diagnostic results section) I reviewed the following notes from the pt's past medical encounters: May 03, 2025 encounter for gastritis Discussion of management or test interpretation with external physician/other qualified health care management assistant: N/A Decision regarding hospitalization or escalation of hospital level of care: Risks and benefits of admission for further treatment of patient's condition was considered however due to patient's stable condition patient will be discharged to follow up closely or return to care for worsening of condition or inability to follow up. Critical Care Note Critical Care Time?: No Stability Stability form required: No Heart Score Heart Score: Heart Score Response (Comments) Value History N/A 0 EKG N/A 0 Age N/A 0 Risk Factors N/A 0 Troponin N/A 0 Total 0 I personally scribed for ALTAGRACIA MIGUEL MD ([email or web address]) on 06/07/25 at 21:10. Electronically submitted by Anup Mchugh ([email or web address]). I personally scribed for ALTAGRACIA MIGUEL MD ([email or web address]) on 06/08/25 at 00:12. Electronically submitted by Anup Mchugh ([email or web address]). ALTAGRACIA MIGUEL MD Jun 07, 2025 21:10
[2025-06-08 00:02] VITALS: BP 106/77; PULSE 77; RESP 14; TEMP 98; O2SAT 99
== END 2025-06-08 00:07 | disposition home or self-care (01) ==
LOC: ER 19:19
DX: N93.9 Abnormal uterine and vaginal bleeding, unspecified (principal); F12.90 Cannabis use, unspecified, uncomplicated; J45.909 Unspecified asthma, uncomplicated; F41.9 Anxiety disorder, unspecified; Z79.899 Other long term (current) drug therapy; Z98.890 Other specified postprocedural states; Z88.0 Allergy status to penicillin; Z79.52 Long term (current) use of systemic steroids; Z79.1 Long term (current) use of non-steroidal anti-inflammatories (NSAID)
CPT/HCPCS: 81001; 81025

== ENCOUNTER 2025-07-05 14:43 | Emergency (ER) | payer MEDICAID ==
[~2025-07-05] VITALS: Ht 149.9 cm; Wt 80.0 kg
[2025-07-05] MEDS ORDERED: METH4PAK PO (15:31)
[2025-07-05] MEDS ORDERED: ALBU108A5 IN (15:31)
--- NOTE | 2025-07-05 15:32 | ED.PDOC ---
SOB-HPI HPI Comments 29 y/o F, with PMHx of anxiety and asthma presents to the ED for CC of asthma. Patient states, she has been experiencing symptoms of shortness of breath sudden onset, this morning (07/05/25). Patient reports, that she is currently out of her Albuterol Inhaler and has been unable to get a refill d/t not having a scheduled appointment with her PCP. Patient denies fever, chills, nasal congestion, or sore-throat. No other symptoms or modifying factors are present at this time. Chief Complaint: Asthma Time Seen by MD: 15:20 Primary Care Provider: ANTONIA Reviewed notes: Nurses Notes, Medications, Allergies Information Source: Patient Mode of Arrival: Ambulatory Severity: Moderate Timing: Hours Duration: Since onset PE Risk Factors: None History of: Asthma Prehospital treatment: None Modifying Factors: Nothing Associated Signs and Symptoms: None Past Medical History PAST MEDICAL HISTORY: Anxiety, Asthma Surgical History: [employer] PL[employer]TER History: Other Family History Family History: Reviewed,noncontributory to illness, Unknown Social History Smoker: Non-Smoker Alcohol: Denies ETOH Use Drugs: Marijuana Lives In: Home Constitutional: denies: chills, diaphoresis, fatigue, fever, malaise, sweats, weakness, others EENTM: denies: blurred vision, double vision, ear bleeding, ear discharge, ear drainage, ear pain, ear ringing, eye pain, eye redness, hearing loss, mouth pain, mouth swelling, nasal discharge, nose bleeding, nose congestion, nose pain, photophobia, tearing, throat pain, throat swelling, voice changes, others Respiratory: reports: shortness of breath; denies: cough, hemoptysis, orthopnea, SOB at rest, SOB with excertion, stridor, wheezing, others Cardiovascular: denies: chest pain, dizzy spells, diaphoresis, Dyspnea on exertion, edema, irregular heart beat, left arm pain, lightheadedness, palpitations, PND, syncope, others Gastrointestinal: denies: abdomen distended, abdominal pain, blood streaked bowels, constipated, diarrhea, dysphagia, difficulty swallowing, hematemesis, melena, nausea, poor appetite, poor fluid intake, rectal bleeding, rectal pain, vomiting, others Genitourinary: denies: abnormal vagina bleeding, burning, dyspareunia, dysuria, flank pain, frequency, hematuria, incontinence, pain, , vagina discharge, urgency, others Neurological: denies: dizziness, fainting, headache, left sided numbness, left sided weakness, numbness, paresthesia, pre-existing deficit, right sided numbness, right sided weakness, seizure, speech problems, tingling, tremors, weakness, others Musculoskeletal: denies: back pain, gout, joint pain, joint swelling, muscle pain, muscle stiffness, neck pain, others Integumetry: denies: bruises, change in color, change in hair/nails, dryness, laceration, lesions, lumps, rash, wounds, others Allergic/Immunocompromised: denies: Difficulty Healing, Frequent Infections, Hives, Itching, others Hematologic/Lymphatic: denies: anemia, blood clots, easy bleeding, easy bruising, swollen glands, others Endocrine: denies: excessive hunger, excessive sweating, excessive thirst, excessive urination, flushing, intolerance to cold, intolerance to heat, une xplained weight gain, unexplained weight loss, others Psychiatric: denies: anxiety, bipolar disorder, depression, hopeless, panic disorder, schizophrenia, sleepless, suicidal, others All Other Systems: Reviewed and Negative Physical Exam General Appearance: Mild Distress HEENT: Normal ENT Inspection, Pharynx Normal, TMs Normal Neck: Full Range of Motion, Non-Tender, Normal, Normal Inspection Respiratory: Chest Non-Tender, No Accessory Muscle Use, Respiratory Distress, Wheezing Cardiovascular: No Edema, No JVD, No Murmur, No Gallop, Normal Peripheral Pulses, Regular Rate/Rhythm Breast Exam: Deferred Gastrointestinal: No Organomegaly, Non Tender, No Pulsatile Mass, Normal Bowel Sounds, Soft Genitalia: Deferred Pelvic: Deferred Rectal: Deferred Extremities: No calf tenderness, Normal capillary refill, Normal inspection, Normal range of motion, Non-tender, No pedal edema Musculoskeletal : Apperance: Normal Neurologic: Alert, customer specialist II-XII nml as Tested, No Motor Deficits, Normal Affect, Normal Mood, No Sensory Deficits Cerebellar Function: Normal Reflexes: Normal Skin: Dry, Normal Color, Warm Lymphatic: No Adenopathy Was a procedure done? Was a procedure done?: No Differential Dx Differential Diagnosis: Asthma, Sinusitis, Pharyngitis, URI X-Ray, Labs, Meds, VS Vital Signs Date Time Temp Pulse Resp B/P (MAP) Pulse Ox O2 Delivery O2 Flow Rate FiO2 07/05/25 14:50 24 96 Room Air* 0 21 07/05/25 14:44 98.0 126 24 129/75 96 98.0 The patient was given Solu-Medrol 125 mg IM The patient was given a continuous breathing treatment of albuterol and Atrovent After the patient received the medication, the patient is feeling much better. We did send a prescription to the pharmacy for a Medrol Dosepak as well as an albuterol inhaler The patient is encouraged to follow up with the primary care doctor The patient will return to the emergency department's condition worsens. Time of 1ST Reevaluation: 15:50 Reevaluation 1ST: Unchanged Patient Education/Counseling: Diagnosis, Treatment, Prognosis Family Education/Counseling: No Family Present SEPSIS Sepsis Screen Date sepsis recognized/suspect: Jul 05, 2025 Time Sepsis recognized/suspect: 1443 Recent Procedure: No On Antibiotic Therapy: No Respiratory Rate >20: No Heart Rate >90: Yes Temp<36 C (96.8 F) or >38.3 C: No SBP <90 or MAP <65 mmHG: No New Acute Mental Status Change: No Is the patient on CPAP, BIPAP,: No Physician Orders Med Neb Initial Treatment (07/05/25 15:27) Vital Signs Date Time Temp Pulse Resp B/P (MAP) Pulse Ox O2 Delivery O2 Flow Rate FiO2 07/05/25 14:50 24 96 Room Air* 0 21 07/05/25 14:44 98.0 126 24 129/75 96 98.0 Departure 1 Departure Time of Disposition: 15:50 Impression: Primary Impression: Acute asthma exacerbation Qualified Codes: J45.901 - Unspecified asthma with (acute) exacerbation Disposition: 01 HOME / SELF CARE / HOMELESS Condition: Fair e-Prescriptions Methylprednisolone (Medrol Dosepak) 4 Mg Geovanny 4 MG PO UD, #21 TAB UAD Prov: JESUS PINEDA MD 07/05/25 Albuterol Sulfate (Albuterol Sulfate Hfa) 108 Mcg/Act Aer 108 MCG IN QID, #90 AER Prov: JESUS PINEDA MD 07/05/25 Discharged With: Self Critical Care Note Critical Care Time?: No Stability Stability form required: No Heart Score Heart Score: Heart Score Response (Comments) Value History N/A 0 EKG N/A 0 Age N/A 0 Risk Factors N/A 0 Troponin N/A 0 Total 0 I personally scribed for JESUS PINEDA MD ([email or web address]) on 07/05/25 at 15:32. Anna ctronically submitted by Meche Black ([email or web address]). JESUS PINEDA MD Jul 05, 2025 15:32
[2025-07-05] MEDS: methylPREDNISolone SOD SUCC 125 MG/2 ML VL IM ONE (15:51)
[2025-07-05 15:54] VITALS: BP 115/64; PULSE 113; TEMP 98.7
[2025-07-05] MEDS: ALBUTEROL SULF 2.5 MG/0.5ML(0.5%) NEB SOLN HHN ONE (16:11)
[2025-07-05 16:12] VITALS: RESP 18; O2SAT 96
[2025-07-05] MEDS: IPRATROPIUM BROM 0.5 MG/2.5ML INH SOL HHN ONE (16:12)
== END 2025-07-05 16:33 | disposition home or self-care (01) ==
LOC: ER 14:43
DX: J45.901 Unspecified asthma with (acute) exacerbation (principal); F41.9 Anxiety disorder, unspecified; F12.90 Cannabis use, unspecified, uncomplicated; Z98.890 Other specified postprocedural states
CPT/HCPCS: 94640; 96372; 99283; J2919

== ENCOUNTER 2025-09-22 08:05 | Emergency (ER) | payer MEDICAID ==
[~2025-09-22] VITALS: Ht 149.9 cm; Wt 78.8 kg
[~2025-09-22 08:05] MED LIST changes: +METH4PAK PO
[2025-09-22 08:25] VITALS: BP 120/81; PULSE 97; RESP 20; TEMP 98.6; O2SAT 99
[2025-09-22] MEDS: ACETAMINOPHEN 325 MG TAB PO ONE (08:34)
--- NOTE | 2025-09-22 08:38 | ED.PDOC ---
Musculoskeletal HPI Comments A 29 YEAR OLD FEMALE PRESENTS TO THE ED WITH COMPLAINT OF LEFT KNEE PAIN. PATIENT STATES YESTERDAY SHE WAS RUNNING TOWARDS DAUGHTER WHILE PLAYING WITH HER AND STATES SHE HAD SLIP AND FALL ONTO LEFT KNEE. PATIENT DENIES ANY ASSOCIATED HEAD INJURY OR LOSS OF CONSCIOUSNESS BUT STATES SINCE SHE HAS BEEN HAVING DIFFICULTY AMBULATING. PATIENT STATES SINCE SHE HAS BEEN HAVING INCREASING LEFT KNEE PAIN AND CAME TODAY FOR EVALUATION. PATIENT DENIES FEVER, CHILLS, SHORTNESS OF BREATH, CHEST PAIN, ABDOMINAL PAIN, NAUSEA, VOMITING, HEADACHE, OR OTHER COMPLAINTS. NO OTHER SYMPTOMS OR MODIFYING FACTORS AT THIS TIME. PATIENT IS ALERT, ORIENTED X 4, AND HAS STEADY GAIT. Chief Complaint: Lower Extremity Time Seen by MD: 08:34 Primary Care Provider: KNIGHT Reviewed Notes: Nurses Notes, Medications, Allergies Allergies: Coded Allergies: Amoxicillin (Verified Allergy, Unknown, 11/24/21) Uncoded Allergies: ANY CILLINS (Allergy, Unknown, 10/05/21) Home Meds Active Scripts Methylprednisolone (Medrol Dosepak) 4 Mg Geovanny, 4 MG PO UD, #21 TAB UAD Prov:JESUS PINEDA MD 07/05/25 Albuterol Sulfate (Albuterol Sulfate Hfa) 108 Mcg/Act Aer, 108 MCG IN QID, #90 AER Prov:JESUS PINEDA MD 07/05/25 Ondansetron Odt 4MG Tab (ZOFRAN PO) 4 Mg Tb, 4 MG PO DAILY for 5 Days, #5 TAB ODT TAB-DISSOLVE IN MOUTH, THEN SWALLOW Prov:AMADO PEARCE MD 05/03/25 Ibuprofen (Ibuprofen) 600 Mg Tab, 1 TAB PO TID for 7 Days, #21 TAB 0 Refills Prov:JOE SAN NP 01/12/25 Ondansetron Odt 4MG Tab (ZOFRAN PO) 4 Mg Tb, 4 MG PO Q8HP PRN for 5 Days, #15 TAB ODT TAB-DISSOLVE IN MOUTH, THEN SWALLOW Prov:JESUS PINEDA MD 06/22/24 Prednisone (Prednisone) 20 Mg Tab, 60 MG PO DAILY, #15 MG Prov:PARESH BAKER 10/13/22 Oseltamivir Phosphate (Tamiflu) 75 Mg Cap, 1 CAP PO BID, #10 CAP Prov:PARESH BAKER 10/13/22 Prednisone (Prednisone) 20 Mg Tab, 60 MG PO DAILY for 6 Days, #15 MG Prov:PARESH BAKER 12/20/21 Spacer/Aerosol-Holding Chamber (Aerochamber Plus/Large Ma) Lrg Mask Mis, MASK ONCE, #1 Prov:KEISHA SANTOYO MD 10/06/21 Reported Medications Vit W/ Ferrous Fumara ( One Daily) Daily Tab, 1 TAB PO DAILY, #90 TAB 3 Refills 11/24/21 Albuterol Sulfate (Albuterol Sulfate Hfa) 108 Mcg/Act Aer, 108 MCG IN, AER 11/24/21 Information Source: Patient Mode of Arrival: Ambulatory Brought in by: SELF Location: Left Extremity Location: Knee Timing: Hours Prehospital treatment: None Severity: Moderate Able to Move Extremity: Yes Bear Weight: Fully Pain: Moderate Mechanism: Spontaneous Circumstances: Fall Onset of Symptoms: Spontaneous Symptoms: Pain Last Tetanus: UTD Associated signs and symptoms: Knee pain Past Medical History PAST MEDICAL HISTORY: Anxiety, Asthma Surgical History: HEAD WAITER/WAITRESS BANQUET History: Other Family History Family History: Reviewed,noncontributory to illness, Unknown Social History Smoker: Non-Smoker Alcohol: Denies ETOH Use Drugs: Marijuana Lives In: Home Constitutional: denies: chills, diaphoresis, fatigue, fever, malaise, sweats, weakness, others EENTM: denies: blurred vision, double vision, ear bleeding, ear discharge, ear drainage, ear pain, ear ringing, eye pain, eye redness, hearing loss, mouth pain, mouth swelling, nasal discharge, nose bleeding, nose congestion, nose pain, photophobia, tearing, throat pain, throat swelling, voice changes, others Respiratory: denies: cough, hemoptysis, orthopnea, SOB at rest, shortness of breath, SOB with excertion, stridor, wheezing, others Cardiovascular: denies: chest pain, dizzy spells, diaphoresis, Dyspnea on exertion, edema, irregular heart beat, left arm pain, lightheadedness, palpitations, PND, syncope, others Gastrointestinal: denies: abdomen distended, abdominal pain, blood streaked bowels, constipated, diarrhea, dysphagia, difficulty swallowing, hematemesis, melena, nausea, poor appetite, poor fluid intake, rectal bleeding, rectal pain, vomiting, others Genitourinary: denies: abnormal vagina bleeding, burning, dyspareunia, dysuria, flank pain, frequency, hematuria, incontinence, pain, , vagina discharge, urgency, others Neurological: denies: dizziness, fainting, headache, left sided numbness, left sided weakness, numbness, paresthesia, pre-existing deficit, right sided numbness, right sided weakness, seizure, speech problems, tingling, tremors, weakness, others Musculoskeletal: reports: joint pain (LEFT KNEE), joint swelling; denies: back pain, gout, muscle pain, muscle stiffness, neck pain, others Integumetry: denies: bruises, change in color, change in hair/nails, dryness, laceration, lesions, lumps, rash, wounds, others Allergic/Immunocompromised: denies: Difficulty Healing, Frequent Infections, Hives, Itching, others Hematologic/Lymphatic: denies: anemia, blood clots, easy bleeding, easy bruising, swollen glands, others Endocrine: denies: excessive hunger, excessive sweating, excessive thirst, excessive urination, flushing, intolerance to cold, intolerance to heat, unexplained weight gain, unexplained weight loss, others Psychiatric: denies: anxiety, bipolar disorder, depression, hopeless, panic disorder, schizophrenia, sleepless, suicidal, others All Other Systems: Reviewed and Negative Physical Exam General Appearance: No Apparent Distress, Obese HEENT: Normal ENT Inspection, PERRL/EOMI, Pharynx Normal, TMs Normal Neck: Full Range of Motion, Non-Tender, Normal, Normal Inspection Respiratory: Chest Non-Tender, Lungs Clear, No Accessory Muscle Use, No Respiratory Distress, Normal Breath Sounds Cardiovascular: No Edema, No JVD, No Murmur, No Gallop, Normal Peripheral Pulses, Regular Rate/Rhythm Breast Exam: Deferred Gastrointestinal: No Organomegaly, Non Tender, No Pulsatile Mass, Normal Bowel Sounds, Soft Genitalia: Deferred Pelvic: Deferred Rectal: Deferred Extremities: Decreased range of motion (SLIGHTLY), No calf tenderness, Normal capillary refill, No pedal edema, Tender (AND MILD SWELLING ON LEFT ANTERIOR KNEE, NO BONY TENDERNESS AND DEFORMITY. ) Musculoskeletal : Apperance: Normal Neurologic: Alert, boat painter II-XII nml as Tested, No Motor Deficits, Normal Affect, Normal Mood, No Sensory Deficits Cerebellar Function: Normal Reflexes: Normal Skin: Dry, Normal Color, Warm Peripheral Pulses: 2+ carotid (R), 2+ carotid (L), 2+ dorsalis pedis (R), 2+ dorsalis pedis (L) Lymphatic: No Adenopathy Was a procedure done? Was a procedure done?: No Differential Diagnosis EXT Differential Diagnosis: Fracture, Sprain, Contusion, Strain Other Differential Diagnosis LEFT KNEE PAIN, LEFT KNEE MUSCLE SPASM MUSCLE STRAIN X-Ray, Labs, Meds, VS Vital Signs Date Time Temp Pulse Resp B/P (MAP) Pulse Ox O2 Delivery O2 Flow Rate FiO2 09/22/25 08:25 97 20 99 Room Air 09/22/25 08:25 98.6 97 20 120/81 (94) 99 98.6 09/22/25 08:07 98.3 106 15 134/80 98 98.3 Current Medications Medications (Trade) Dose Ordered Sig/Floyd Route Start Time Stop Time Status Last Admin Acetaminophen (Tylenol Tablet) 1,000 mg ONCE ONCE PO 09/22/25 08:30 09/22/25 08:31 DC 09/22/25 08:34 X-Ray, Labs, Meds, VS Comment COURSE: EXTERNAL MEDICAL RECORDS REVIEWED: [NONE] INDEPENDENT HISTORIANS: [NONE] SOCIAL DETERMINANTS OF HEALTH: [NONE] LABS ORDERED: NONE REVIEWED AND INTERPRETED RESULTS: NONE IMAGING ORDERED: LEFT KNEE X-RAY: NO FX AND DISLOCATION, READ BY ME, PENDING RADIOLOGIST READING. TREATMENTS ORDERED: TYLENOL 1 G PO PROCEDURES PERFORMED: NONE CRITICAL CARE TIME: NONE I HAVE DISCUSSED THE PATIENT WITH THE ATTENDING PHYSICIAN DR. TOTH, AND HE AGREES WITH THE PATIENT'S PLAN OF CARE AND DISPOSITION. BASED ON HISTORY OF PRESENT ILLNESS, AND PHYSICAL EXAM, PATIENT WILL BE DISCHARGED HOME. DISCUSSED PLAN FOR DISCHARGE HOME WITH RX [MOTRIN 800MG]. MEDICATION WARNINGS GIVEN. SHARED DECISION MAKING: DISCUSSED WITH PATIENT THAT THEIR WORKUP WAS NORMAL. PATIENT INSTRUCTED TO FOLLOW UP WITH PRIMARY CARE PROVIDER IN 1-2 DAYS FOR RE- EVALUATION OF SYMPTOMS. PATIENT VERBALIZES UNDERSTANDING TO RETURN TO ED FOR NEW OR WORSENING SYMPTOMS OR IF FOLLOW UP WITH PCP CANNOT BE OBTAINED. PATIENT FEELS COMFORTABLE GOING HOME AT THIS TIME. ALL QUESTIONS ADDRESSED AT TIME OF DISCHARGE. Images Reviewed?: Images reviewed and evaluated by me Time of 1ST Reevaluation: 09:20 Reevaluation 1ST: Improved Patient Education/Counseling: Diagnosis, Treatment, Need For Follow Up Family Education/Counseling: Diagnosis, Treatment, Need For Follow Up Medical Screening: No EMC Exist At This Time Departure 1 Departure Time of Disposition: 09:20 Impression: Primary Impression: Left knee sprain Qualified Codes: S83.8X2A - Sprain of other specified parts of left knee, initial encounter Disposition: HOME / SELF CARE / HOMELESS Condition: Stable Additional Instructions: INSTRUCTIONS: FOLLOW-UP WITH PCP IN 1 TO 2 DAYS. TAKE MEDICATIONS PRESCRIBED. RETURN TO ED FOR ANY NEW OR WORSENING SYMPTOMS. e-Prescriptions Ibuprofen (Ibuprofen) 800 Mg Tab 1 TAB PO TID, #30 TAB Prov: PARESH BAKER 09/22/25 Discharged With: Self Critical Care Note Critical Care Time?: No Stability Stability form required: No Heart Score Heart Score: Heart Score Response (Comments) Value History N/A 0 EKG N/A 0 Age N/A 0 Risk Factors N/A 0 Troponin N/A 0 Total 0 I personally scribed for PARESH BAKER ([email or web address]) on 09/22/25 at 08:38. Electronically submitted by Pamela REYNA). PARESH BAKER Sep 22, 2025 08:38
[2025-09-22] MEDS ORDERED: IBUP-1456 PO (09:01)
--- NOTE | 2025-09-22 09:14 | DVH ---
EXAM: XY L KNEE 3V XRAY HISTORY: FALL COMPARISON: None TECHNIQUE: 3 views of the left knee were performed. FINDINGS: No acute fracture is identified about the left knee. No significant joint space narrowing. There is a small to moderate joint effusion accumulating in the suprapatellar pouch. IMPRESSION: 1. No fracture or significant degenerative changes of the left knee. 2. Small to moderate left knee effusion. If internal derangement is suspected, consider follow-up noncontrast MRI of the left knee for evaluation of the ligaments and menisci.
== END 2025-09-22 09:05 | disposition home or self-care (01) ==
LOC: ER 08:05
DX: S83.92XA Sprain of unspecified site of left knee, initial encounter (principal); F41.9 Anxiety disorder, unspecified; J45.909 Unspecified asthma, uncomplicated; Z88.0 Allergy status to penicillin; W01.0XXA Fall on same level from slipping, tripping and stumbling without subsequent striking against object, initial encounter; Y93.89 Activity, other specified; Y92.89 Other specified places as the place of occurrence of the external cause; Y99.8 Other external cause status
CPT/HCPCS: 73562

== ENCOUNTER 2025-10-16 13:48 | Emergency (ER) | payer MEDICAID ==
[~2025-10-16] VITALS: Ht 149.9 cm; Wt 77.0 kg
[~2025-10-16 13:48] MED LIST changes: +IBUP-1456 PO
[2025-10-16] MEDS ORDERED: methylPREDNISolone SOD SUCC 125 MG/2 ML VL IV ONE (14:00)
[2025-10-16] MEDS: ALBUTEROL SULF 2.5 MG/0.5ML(0.5%) NEB SOLN NEB ONE (14:25)
[2025-10-16 14:26] LABS: Hematocrit 41.9 % (36.0-46.0); Hemoglobin 13.9 g/dL (12.2-16.2); Mean Corpuscular Hemoglobin 30.3 pg (28.0-32.0); Mean Corpuscular Volume 91.7 fL (80.0-100.0); Nucleated Red Blood Cells % 0.0 %
[2025-10-16] MEDS: IPRATROPIUM BROM 0.5 MG/2.5ML INH SOL NEB ONE (14:26)
--- NOTE | 2025-10-16 14:38 | ED.PDOC ---
SOB-HPI HPI Comments HPI: Rolf 29 y.o F presents to the ED for a chief complaint of asthma exacerbation accompanied by a cough, congestion and runny nose. Patient reports using her rescue inhaler twice today, had no relief and states she has ran out of her albuterol. Upon ED arrival, patient's SPO2 read 94% RA. She admits to marijuana use. No fever, chills, nausea, vomiting or chest pain reported. Initial Vitals BP: 119/84 HR: 103 RR: 20 O2: 94% RA Temp: 98.8 F Past Medical History: Asthma Past Surgical History: Social History: Smokes Cannibis Allergies: Any type of cillins HPI: Poor Historian. REVIEW OF SYSTEMS: CONSTITUTIONAL: Denies acute: fever, diaphoresis, chills, generalized weakness. HEAD: Denies acute: headache, photophobia Eyes: Denies acute: Double vision, vision loss, eye pain, eye discharge. EARS: Denies acute: tinnitus, hearing loss, ear discharge, ear pain, THROAT: Denies acute: sore throat, swelling, difficulty swallowing , pain with swallowing, change in voice. NECK: Denies acute: neck pain, neck swelling, stiff neck. HEART: Denies acute : chest pain, palpitations, LUNGS: Denies acute: hemoptysis ABDOMEN: Denies acute: abdominal pain, Nausea, Vomiting, diarrhea, melena , hematemesis, hematochezia SKIN: Denies acute: rash, redness, lesions, itchiness. EXTREMITIES: Denies acute: calf pain, numbness, tingling, weakness, denies pain in extremity. Denies acute: Low back pain. Neuro: Denies acute: focal neurological deficit, motor or sensory focal neurological deficit, tremors, seizure like activity, confusion, dizziness, change in mental status, loss of bowel or bladder function, cauda equina like symptoms. : Denies acute: dysuria, hematuria, flank pain, increase in urinary frequency. PSYCH: Denies acute: hallucination, suicidal ideation, homicidal ideation. FEMALE: Denies acute: abnormal vaginal bleeding, foul odor, unusual discharge. PHYSICAL EXAM: General: -----mild---acute distress, awake and alert. Head: normocephalic, atraumatic. No raccoon's eyes, no lutz sign. Neck: supple, trachea is midline, no swelling. Throat: Normal phonation. Eyes:, no erythema, no purulent discharge, no proptosis, no icterus. Heart: regular rate, regular rhythm, no significant murmur appreciated. Lungs: no apparent respiratory distress, Able to speak in full sentences. Bilateral wheezing, no rhonchi, no crackles. No stridors Abdomen: non tender to palpation, non distended, soft, no guarding, no rebound, + bowel sounds. Neuro: Awake, Alert, oriented to name, self, situation, follows commands GCS=15. Speech is normal. Skin: no petechia, no purpura, no cyanosis, non-pale, not jaundice. Lower extremities: --no - Pitting edema no deformity, no focal swelling, no calf TTP. Makes eye contact. moves all four extremities. Face: no apparent facial droop. Ambulating in the ED independently. ED COURSE: DISCLAIMER: This medical document was created using an electronic medical record system with voice recognition software and computerized dictation system. Although this document has been carefully reviewed, there might still be some phonetic and typographical errors. Occasional wrong-word or "sound-alike" substitutions may have occurred due to the inherent limitations of voice recognition software. These areas are purely typographical due to imperfections of the software programs and do not reflect any compromise in the patient's medical care. Please read the chart carefully and recognize, using context, where these substitutions have occurred. Chief Complaint: Asthma Time Seen by MD: 14:07 Primary Care Provider: ANTONIA Reviewed notes: Allergies Information Source: Patient Mode of Arrival: Ambulatory Severity: Moderate Timing: Days Differential Dx Differential Diagnosis: Asthma, Dysrhythmia, Hyperventilation, Hyponatremia, Respiratory Distress, URI X-Ray, Labs, Meds, VS Vital Signs Date Time Temp Pulse Resp B/P (MAP) Pulse Ox O2 Delivery O2 Flow Rate FiO2 10/16/25 17:08 72 18 98 Room Air 10/16/25 17:08 97.6 72 18 122/64 (83) 98 97.6 10/16/25 14:30 14 97 Room Air* 0 21 10/16/25 13:50 98.8 103 20 119/84 93 98.8 Lab Test 10/16/25 14:07 Range/Units White Blood Count 8.7 4.4-10.8 10^3/uL Red Blood Count 4.57 4.0-5.20 10^6/uL Hemoglobin 13.9 12.2-16.2 g/dL Hematocrit 41.9 36.0-46.0 % Mean Corpuscular Volume 91.7 80.0-100.0 fL Mean Corpuscular Hemoglobin 30.3 28.0-32.0 pg Mean Corpuscular Hemoglobin Concent 33.1 32.0-36.0 g/dL Red Cell Distribution Width 13.8 11.8-14.3 % Platelet Count 313 140-450 10^3/uL Mean Platelet Volume 9.2 6.9-10.8 fL Neutrophils (%) (Auto) 71.7 37.0-80.0 % Lymphocytes (%) (Auto) 15.4 10.0-50.0 % Monocytes (%) (Auto) 10.4 0.0-12.0 % Eosinophils (%) (Auto) 1.8 0.0-7.0 % Basophils (%) (Auto) 0.7 0.0-2.0 % Neutrophils # (Auto) 6.2 1.6-8.6 10 ^3/uL Lymphocytes # (Auto) 1.3 0.4-5.4 10 ^3/uL Monocytes # (Auto) 0.9 0-1.3 10 ^3/uL Eosinophils # (Auto) 0.2 0-0.8 10 ^3/uL Basophils # (Auto) 0.1 0-0.2 10 ^3/uL Nucleated Red Blood Cells 0.0 % Sodium Level 145 136-145 mmol/L Potassium Level 4.1 3.5-5.1 mmol/L Chloride Level 106 98-107 mmol/L Carbon Dioxide Level 30 20-31 mmol/L Anion Gap 9 5-15 Blood Urea Nitrogen 12 9-23 mg/dL Creatinine 0.76 0.550-1.02 mg/dL Glomerular Filtration Rate Calc 107 >90 mL/min BUN/Creatinine Ratio 15.8 10.0-20.0 Serum Glucose 83 74-106 mg/dL Calcium Level 9.6 8.7-10.4 mg/dL Total Bilirubin 0.5 0.2-1.0 mg/dL Aspartate Amino Transferase (AST) 16 13-40 U/L Alanine Aminotransferase (ALT) 11 7-40 U/L Alkaline Phosphatase 74 46-116 U/L Total Protein 7.0 5.7-8.2 g/dL Albumin 4.2 3.2-4.8 g/dL Current Medications Medications (Trade) Dose Ordered Sig/Floyd Route Start Time Stop Time Status Last Admin Albuterol (Ventolin Medneb) 2.5 mg ONCE ONCE NEB 10/16/25 14:00 10/16/25 14:01 DC 10/16/25 14:25 Ipratropium [place] (Atrovent Medneb) 1 mg ONCE ONCE NEB 10/16/25 14:00 10/16/25 14:01 DC 10/16/25 14:26 Methylprednisolone Sodium Succinate (Solu Medrol) 125 mg ONCE ONCE IM 10/16/25 17:00 10/16/25 17:01 DC 10/16/25 17:00 [place] [address] Ph: [phone] DIAGNOSTIC IMAGING Diagnostic Imaging Report : [id number] Signed PATIENT: [facility]ERC[facility]: [id number] UNIT: [id number] : 1995 LOC: ER ROOM / BED: / AGE / SEX: 29 / F ADM STATUS: [facility] ER SERVICE 1358 ORDERING PHYSICIAN: YESSY OLIVEROS DO PROCEDURE(s): CXRP - CHEST PORTABLE REASON: sob/cough ORDER NUMBER(s): [id number], ACCESSION NUMBER(s): [id number] CHEST RADIOGRAPH INDICATION: sob/cough TECHNIQUE: Single frontal view of the chest was obtained COMPARISON: None FINDINGS: Lines and Tubes: None Lungs: No focal consolidation. Pleura: No effusion. No pneumothorax. Cardiomediastinal contours: Unremarkable Bones: No acute osseous abnormality. IMPRESSION: 1. No acute cardiopulmonary disease. ATED BY: KEISHA KAMARA Jr., DO DICTATED DATE/TIME: 10/16/251434 SIGNED BY: KEISHA KAMARA Jr., SIGNED DATE/TIME: 12/13/25 1435 CC: Time of 1ST Reevaluation: 14:33 Reevaluation 1ST: Unchanged Patient Education/Counseling: Diagnosis, Treatment Family Education/Counseling: No Family Present Departure 1 Departure Time of Disposition: 14:48 Impression: Primary Impression: Acute asthma exacerbation Disposition: HOME / SELF CARE / HOMELESS Condition: Stable Additional Instructions: Additional instructions: Please read all instructions provided in this packet carefully. You MUST follow-up with your primary care/family doctor in 1 to 2 days. If you are unable to see your primary care/family doctor, please return to our emergency room for re-assessment and re-evaluation in 1 to 2 days. Return to the emergency room here in our facility or to the nearest ER MP if your symptoms change or worsen. CONSULTATIONS: you MUST Follow-up for consultation as soon as possible with: --pulmonology in 1-2 days. Please call for appointment.- You MUST call the consultants office yourself to make an appointment. You may need to arrange that through your insurance and/or your primary/family doctor. If you are unable to see the change consultant in 1 to 2 days, you must return to our emergency room (or any other ER of your choice) for re-assessment and re- evaluation. Adequate fluid hydration. Although you have been discharged from the Emergency Department, this does not mean that you have a "clean bill of health". No definitive diagnosis for your symptoms has been made today. It is possible that you are in the process of developing a serious illness. This is why you must return to the ED without fail if any new or worsening symptoms develop. You already have an inhaler at home. e-Prescriptions Prednisone (Prednisone) 20 Mg Tab 4040 MG PO DAILY for 5 Days, #10 TAB Prov: YESSY OLIVEROS DO 10/16/25 Discharged With: Self Critical Care Note Critical Care Time?: No I personally scribed for YESSY OLIVEROS DO ([email or web address]) on 10/16/25 at 14:38. Electronically submitted by Tiffanie Sherman ([facility]). I personally scribed for YESSY OLIVEROS DO ([email or web address]) on 10/16/25 at 18:53. Electronically submitted by Tiffanie Sherman ([facility]). YESSY OLIVEROS DO Oct 16, 2025 14:38
[2025-10-16 14:45] LABS: Alanine Aminotransferase 11 U/L (7-40); Albumin 4.2 g/dL (3.2-4.8); Alkaline Phosphatase 74 U/L (46-116); Anion Gap 9 (5-15); BUN/Creatinine Ratio 15.8 (10.0-20.0); Bilirubin, Total 0.5 mg/dL (0.2-1.0); Blood Urea Nitrogen 12 mg/dL (9-23); Calcium 9.6 mg/dL (8.7-10.4); Carbon Dioxide 30 mmol/L (20-31); Chloride 106 mmol/L (98-107); Glucose 83 mg/dL (74-106); Potassium 4.1 mmol/L (3.5-5.1); Sodium 145 mmol/L (136-145); Total Protein 7.0 g/dL (5.7-8.2)
[2025-10-16] MEDS ORDERED: PRED20TA2 PO (15:00)
[2025-10-16] MEDS: methylPREDNISolone SOD SUCC 125 MG/2 ML VL IM ONE (17:00)
[2025-10-16 17:08] VITALS: BP 122/64; PULSE 72; RESP 18; TEMP 97.6; O2SAT 98
== END 2025-10-16 17:28 | disposition home or self-care (01) ==
LOC: ER 13:48
DX: J45.901 Unspecified asthma with (acute) exacerbation (principal); F17.200 Nicotine dependence, unspecified, uncomplicated; Z98.890 Other specified postprocedural states
CPT/HCPCS: 36415; 71045; 80053; 85025; 94640; 96372; 99284; J2919